=== PATIENT | female | born 1945 | race Asian ===

== ENCOUNTER 2018-01-23 17:52 | Emergency (ER) | payer SELFPAY ==
[~2018-01-23] VITALS: Ht 162.6 cm; Wt 58.0 kg
[2018-01-23 18:14] VITALS: Ht 162.6 cm; Wt 58.0 kg
[2018-01-23 21:00] VITALS: BP 130/89
== END 2018-01-23 21:00 | disposition home or self-care (01) ==
LOC: ED 17:52
DX: S61.451A Open bite of right hand, initial encounter (principal); S60.811A Abrasion of right wrist, initial encounter; S90.512A Abrasion, left ankle, initial encounter; W55.01XA Bitten by cat, initial encounter; Y93.89 Activity, other specified; Y92.89 Other specified places as the place of occurrence of the external cause; Y99.8 Other external cause status
CPT/HCPCS: 90715